=== PATIENT | male | born 1995 | race Caucasian/White ===

== ENCOUNTER 2016-08-24 04:22 | Emergency (ER) | payer OTHER ==
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
== END 2016-08-24 05:05 | disposition short-term general hospital (02) ==
LOC: ER 04:22
DX: S02.609B Fracture of mandible, unspecified, initial encounter for open fracture (principal); F17.210 Nicotine dependence, cigarettes, uncomplicated; Z88.0 Allergy status to penicillin; Y04.2XXA Assault by strike against or bumped into by another person, initial encounter; Y92.410 Unspecified street and highway as the place of occurrence of the external cause